=== PATIENT | female | born 1980 | race African-American/Black ===

== ENCOUNTER 2018-09-26 11:51 | Outpatient (CLI) | payer OTHER ==
--- NOTE | 2018-09-26 19:45 | RAD ---
LUMBAR SPINE THREE VIEWS: 09/26/18 As before, there is spondylolisthesis of L4 on L5 due to spondylolysis. The degree of anterior slippa ge has gotten a bit worse over time. There is very slight disc space narrowing at L4-L5 and L5-S1. N o acute fractures were seen. The SI joints appear normal. There are a few more degenerative changes i n the L4 vertebral body than before. IMPRESSION: 1. Grade I spondylolisthesis of L4 on L5 with spondylolysis, but the anterior slippage is slight ly more prominent today than before. 2. Very mild degenerative changes at this level. POS: HOME
== END 2018-09-26 11:52 | disposition home or self-care (01) ==
LOC: BURRAD 11:51
PROVIDERS: ATTEND Family Medicine
DX: M54.32 Sciatica, left side (principal); M47.816 Spondylosis without myelopathy or radiculopathy, lumbar region; M43.16 Spondylolisthesis, lumbar region
CPT/HCPCS: 72100

== ENCOUNTER 2021-05-22 16:54 | Emergency (ER) | payer OTHER | END 2021-05-22 18:00 | disposition home or self-care (01) | LOC: BURERS 16:54 | DX: R56.9 Unspecified convulsions (principal); S00.03XA Contusion of scalp, initial encounter; W19.XXXA Unspecified fall, initial encounter | CPT/HCPCS: 70450 ==